=== PATIENT | female | born 1995 | race Caucasian/White ===

== ENCOUNTER 2019-02-03 08:41 | Emergency (ER) | payer MEDICAID, OTHER ==
[2019-02-03 09:31] VITALS: BP 136/102; PULSE 99; O2SAT 97
--- NOTE | 2019-02-03 10:33 | ERPHSYRPT ---
- History of Present Illness Source: patient Exam Limitations: no limitations Patient Subjective Stated Complaint: developed rash over entire body two days ago. used benadryl without relief. denies any new food, med or soap. Triage Nursing Assessment: ambulated to room per self. skin w/d, color normal. has red spots over entire body. states it itches. Physician History: Patient developed itchy rash on her abdomen 36 hours ago that has spread to her chest, back and upper extremities and few scattered on the lower extremities Timing/Duration: day(s) (2) Quality: itchy Severity: moderate Location: face, torso, extremities Possible Causes: no cause identified Modifying Factors: Improves With: antihistamine Associated Symptoms: blisters, rash, No change in skin texture, No difficulty breathing, No edema, No fever, No flushing, No headache, No hives, No jaundice, No malaise, No nasal congestion, No numbness, No pallor, No paresthesia, No petechiae, No sore throat, No swelling/mass/lumps, No tingling Allergies/Adverse Reactions: No Known Drug Allergies Allergy (Unverified 02/03/19 08:54) Hx Tetanus, Diphtheria Vaccination/Date Given: No Hx Influenza Vaccination/Date Given: No Hx Pneumococcal Vaccination/Date Given: No - Review of Systems Constitutional: No Fever, No Chills Eyes: No Symptoms, No Eye Pain, No Eye Redness, No Itchy, No Photophobia, No Foreign Body Sensation Ears, Nose, & Throat: No Symptoms, No Nose Congestion, No Nose Discharge, No Mouth Pain, No Mouth Swelling, No Hoarse, No Painful Swallowing Respiratory: No Cough, No Dyspnea Cardiac: No Chest Pain, No Edema, No Syncope Abdominal/Gastrointestinal: No Abdominal Pain, No Nausea, No Vomiting, No Diarrhea Genitourinary Symptoms: No Dysuria Musculoskeletal: No Back Pain, No Neck Pain Skin: Pruritis, Rash, Skin Lesions Neurological: No Dizziness, No Focal Weakness, No Sensory Changes Psychological: No Symptoms Endocrine: No Symptoms Hematologic/Lymphatic: No Easy Bleeding, No Easy Bruising, No Adenopathy All Other Systems: Reviewed and Negative - Past Medical History Pertinent Past Medical History: Yes Neurological History: Migraines ENT History: No Pertinent History Cardiac History: No Pertinent History Respiratory History: No Pertinent History Endocrine Medical History: No Pertinent History Musculoskeletal History: No Pertinent History GI Medical History: No Pertinent History History: No Pertinent History Psycho-Social History: Anxiety Female Reproductive Disorders: No Pertinent History - Past Surgical History Past Surgical History: No - Social History Smoking Status: Never smoker Exposure to second hand smoke: No Drug Use: none Patient Lives Alone: No - Female History Hx Last Menstrual Period: 10/31/18 Hx Now: (unsure) - Nursing Vital Signs Nursing Vital Signs: Initial Vital Signs Temperature 98.1 F 02/03/19 08:45 Pulse Rate 116 H 02/03/19 08:45 Respiratory Rate 16 02/03/19 08:45 Blood Pressure 149/104 02/03/19 08:45 O2 Sat by Pulse Oximetry 96 02/03/19 08:45 Pain Scale Pain Intensity 0 - Physical Exam General Appearance: no apparent distress, alert Eye Exam: PERRL/EOMI, eyes nml inspection Ears, Nose, Throat Exam: normal ENT inspection, TMs normal, pharynx normal, moist mucous membranes, dry mucous membranes Neck Exam: normal inspection, non-tender, supple, full range of motion, No meningismus, No lymphadenopathy Respiratory Exam: normal breath sounds, lungs clear, No respiratory distress Cardiovascular Exam: regular rate/rhythm, normal heart sounds Gastrointestinal/Abdomen Exam: soft, mass, No tenderness, No hepatomegaly, No organomegaly, No splenomegaly Back Exam: normal inspection, normal range of motion, No CVA tenderness, No vertebral tenderness Extremity Exam: normal inspection, normal range of motion Neurologic Exam: alert, oriented x 3, cooperative, normal mood/affect, sensation nml, No motor deficits Skin Exam: normal color, warm, dry, rash, other (various erythematous papules with few vesicles on chest, abdomen, back, face and upper extremities scattered in various sizes and stages appearance), No jaundice, No cyanosis, No ecchymosis SpO2: 97 - Progress Progress: unchanged Counseled pt/family regarding: diagnosis, need for follow-up (will send off varicella titers and follow-up as an outpatient) - Departure Departure Disposition: Home, In-patient Admission Clinical Impression: Varicella, Elevated blood pressure reading without diagnosis of hypertension Condition: Good Critical Care Time: No Referrals: MIGUEL CAMEJO PA [Primary Care Provider] - Instructions: Chickenpox (DC), Viral Exanthem (DC), DASH Diet Prescriptions: Acyclovir 800 mg [Zovirax 800 mg] 800 mg PO 5XD #35 tablet Hydroxyzine HCl 25 mg PO QID PRN PRN #15 tablet PRN Reason: Itching
[2019-02-05 11:27] LABS: Varicell-Zoster IgG Int Negative
[2019-02-05 12:23] LABS: Varicella IgG Ab (Titer) 0.3 AI
== END 2019-02-03 09:33 | disposition home or self-care (01) ==
LOC: ED 08:41
DX: B01.9 Varicella without complication (principal); R03.0 Elevated blood-pressure reading, without diagnosis of hypertension
CPT/HCPCS: 36415; 86787; 99283

== ENCOUNTER 2020-10-03 09:45 | Emergency (ER) | payer BC, OTHER ==
--- NOTE | 2020-10-03 10:15 | ERPHSYRPT ---
- History of Present Illness Source: patient Patient Subjective Stated Complaint: pt here for pain to bottom of right for 3-4 weeks now, she denies any injury Triage Nursing Assessment: pt alert , walked in, resp easy, skin w/d/p. pt has small round area on bottom of maday with sloughing skin, no redness or swelling Physician History: 24 yo wf w R foot lesion x 3wks. Pain denies trauma and rates pain 4/10 which is worse w walking. Method of Injury: unknown Occurred: other (3wks) Quality: aching Severity of Pain-Max: moderate Severity of Pain-Current: mild Lower Extremities Pain: foot: right Modifying Factors: Improves With: movement Associated Symptoms: none Allergies/Adverse Reactions: No Known Drug Allergies Allergy (Verified 10/03/20 10:00) Home Medications: No Reportable Medications [No Reported Medications] 10/03/20 [History] Hx Tetanus, Diphtheria Vaccination/Date Given: No Hx Influenza Vaccination/Date Given: No Hx Pneumococcal Vaccination/Date Given: No Immunizations Up to Date: Yes Travel Risk - International Travel Have you traveled outside of the country in past 3 weeks: No - Coronavirus Screening Are you exhibiting any of the following symptoms?: No Close contact with a COVID-19 positive Pt in past 14-21 Days: No - Vaccine Status Have you recieved a Covid-19 vaccination: Yes Milk Drier: MideoMe - Vaccination Dates Date of 2cond Vaccination (if applicable): 09/29/2020 - Review of Systems Constitutional: No Symptoms Eyes: No Symptoms Ears, Nose, & Throat: No Symptoms Respiratory: No Symptoms Cardiac: No Symptoms Abdominal/Gastrointestinal: No Symptoms Genitourinary Symptoms: No Symptoms Skin: No Symptoms Neurological: No Symptoms Psychological: No Symptoms Endocrine: No Symptoms Hematologic/Lymphatic: No Symptoms Immunological/Allergic: No Symptoms - Past Medical History Pertinent Past Medical History: Yes Neurological History: Migraines ENT History: No Pertinent History Cardiac History: No Pertinent History Respiratory History: No Pertinent History Endocrine Medical History: No Pertinent History Musculoskeletal History: No Pertinent History GI Medical History: No Pertinent History History: No Pertinent History Psycho-Social History: Anxiety Female Reproductive Disorders: No Pertinent History - Past Surgical History Past Surgical History: No - Social History Smoking Status: Never smoker Exposure to second hand smoke: No Drug Use: none Patient Lives Alone: No Significant Family History: no pertinent family hx - Female History Hx Last Menstrual Period: week ago Hx Now: No - Nursing Vital Signs Nursing Vital Signs: Initial Vital Signs Temperature 97.7 F 10/03/20 09:51 Pulse Rate 110 H 10/03/20 09:51 Respiratory Rate 18 10/03/20 09:51 Blood Pressure 138/97 10/03/20 09:51 O2 Sat by Pulse Oximetry 98 10/03/20 09:51 Pain Scale Pain Intensity 5 - Physical Exam General Appearance: no apparent distress Eyes, Ears, Nose, Throat Exam: normal ENT inspection Neck Exam: normal inspection, non-tender Cardiovascular/Respiratory Exam: normal breath sounds, regular rate/rhythm, heart sounds normal Gastrointestinal/Abdominal Exam: non-tender Back Exam: normal inspection Hips Exam: bilateral: non-tender, normal inspection, normal range of motion, no evidence of injury Legs Exam: bilateral leg: non-tender, normal inspection, normal range of motion, no evidence of injury Knees Exam: bilateral knee: non-tender, normal inspection, normal range of motion, no evidence of injury Ankle Exam: bilateral ankle: non-tender, normal inspection, normal range of motion, no evidence of injury Foot Exam: right foot: pain (R plantar wart/Mildly TTP/no erythema/No edema/Good pedal pulse, distal sensation, and capillary return) Neuro/Tendon Exam: normal sensation, normal motor functions, normal tendon funct ions, responds to pain, no evidence tendon injury Mental Status Exam: alert, oriented x 3, cooperative Skin Exam: normal color SpO2 Interpretation: normal SpO2: 98 O2 Delivery: Room Air - Course Nursing assessment & vital signs reviewed: Yes - Progress Progress Note: 10/03/20 10:13 R plantar wart/ Will refer to Dr. Magallon Counseled pt/family regarding: need for follow-up - Departure Departure Disposition: Home Clinical Impression: Plantar wart, right foot Condition: Stable Critical Care Time: No Referrals: MIGUEL CAMEJO PA [NON-STAFF PHY W/O PRIVILEGES] - TED STARKS DPM [ACTIVE STAFF] - Additional Instructions: Follow up with Dr. Magallon Get a pad at pharmacy/[facility] Motrin/Tylenol for pain
[2020-10-03 10:29] VITALS: BP 119/78; PULSE 78
[2020-10-03 15:41] VITALS: O2SAT 98
== END 2020-10-03 10:35 | disposition home or self-care (01) ==
LOC: ED 09:45
DX: B07.0 Plantar wart (principal)
CPT/HCPCS: 99283